=== PATIENT | female | born 1970 | race Two or more races ===

== ENCOUNTER → 2017-09-11 | Emergency (ER) | payer OTHER ==
[~2017-09-11] VITALS: Ht 175.3 cm; Wt 99.8 kg
== END | disposition home or self-care (01) ==
LOC: ER 10:10
DX: N20.0 Calculus of kidney (principal); R10.31 Right lower quadrant pain

== ENCOUNTER 2024-09-02 00:26 | Emergency (ER) | payer OTHER ==
[~2024-09-02] VITALS: Ht 170.2 cm; Wt 111.1 kg
[2024-09-02 00:34] VITALS: BP 116/76; O2SAT 97
[2024-09-02] MEDS ORDERED: KETOROLAC TROMETHAMINE 60 MG VIAL IM STA (02:59)
[2024-09-02] MEDS ORDERED: TRIAMCINOLONE ACETONIDE 40 MG/ML VIAL IM STA (03:00)
[2024-09-02] MEDS ORDERED: KETOROLAC TROMETHAMINE 60 MG VIAL IM ONE (03:14)
[2024-09-02] MEDS ORDERED: TRIAMCINOLONE ACETONIDE 40 MG/ML VIAL ONE (03:14)
[2024-09-02] MEDS ORDERED: KETO10TA2 PO (03:15)
== END 2024-09-02 03:28 ==
LOC: ER 00:28
DX: M25.562 Pain in left knee (principal)